=== PATIENT | female | born 1955 | race Hispanic/Latino ===

== ENCOUNTER 2018-04-13 17:00 | Emergency (ER) | payer OTHER ==
[~2018-04-13] VITALS: Ht 142.2 cm; Wt 66.7 kg
[2018-04-13] MEDS ORDERED: TRAMADOL HCL 50 MG TAB PO ONE (17:45)
[2018-04-13] MEDS ORDERED: KETOROLAC TROMETHAMINE 10 MG TAB PO ONE (17:45)
--- NOTE | 2018-04-13 18:42 | Diagnostic Imaging Report ---
PROCEDURE:X-RAY LEFT FOREARM, TWO VIEWS COMPARISON:None. INDICATIONS:FELL TODAY ON LEFT SIDE PAIN LEFT ARM AND PELVIS FINDINGS: Generalized osteopenia, which limits evaluation of bony structures. Linear lucency traversing the distal radial metaphysis, with questionable cortical step-off in the lateral aspect. Cortical step-off at the distal tip of the ulnar styloid process. Rest of the bony structures is intact. Joint spaces are relatively well-preserved. No posterior fat pad elevation. Soft tissues are grossly unremarkable. CONCLUSION: Generalized osteopenia which limits evaluation of the bony structures. Findings highly suspicious for nondisplaced distal radial fracture and ulnar styloid fracture. Tavares Zaidi M.D. Dictated by: Tavares Zaidi M.D. on 04/13/2018 at 18:48 Electronically approved by: Tavares Zaidi M.D. on 04/13/2018 at 18:48
--- NOTE | 2018-04-13 18:44 | Diagnostic Imaging Report ---
PROCEDURE:X-RAY LEFT WRIST, LIMITED COMPARISON:None. INDICATIONS:FALL TODAY ON LEFT SIDE PAIN IN LEFT ARM/WRIST AND PELVIS FINDINGS: Generalized osteopenia, which limits evaluation of the bony structures. Questionable linear lucency traversing the distal metaphysis of the radius. Cortical step-off in the distal tip of the ulnar styloid process. Joint spaces are relatively preserved. Mild soft tissue swelling. CONCLUSION: 1. Generalized osteopenia limits evaluation of the bony structures. Findings suspicious for distal radial and ulnar styloid nondisplaced fractures, better visualized on forearm views. Tavares Zaidi M.D. Dictated by: Tavares Zaidi M.D. on 04/13/2018 at 18:49 Electronically approved by: Tavares Zaidi M.D. on 04/13/2018 at 18:49
--- NOTE | 2018-04-13 18:45 | Diagnostic Imaging Report ---
PROCEDURE:X-RAY PELVIS, AP VIEW COMPARISON:None. INDICATIONS:FELL TODAY ON LEFT SIDE LEFT ARM AND PELVIS PAIN FINDINGS: Generalized osteopenia. No acute, displaced fractures or dislocations, within the limitations of the study. No lytic or blastic lesions. Mild degenerative changes in bilateral hip joints. Soft tissues are grossly unremarkable. CONCLUSION: Generalized osteopenia, which limits evaluation of bony structures. No acute displaced fracture or dislocation within the limitations of the study. Tavares Zaidi M.D. Dictated by: Tavares Zaidi M.D. on 04/13/2018 at 18:51 Electronically approved by: Tavares Zaidi M.D. on 04/13/2018 at 18:51
== END 2018-04-13 19:35 | disposition home or self-care (01) ==
LOC: ER 17:00
DX: S52.592A Other fractures of lower end of left radius, initial encounter for closed fracture (principal); S52.615A Nondisplaced fracture of left ulna styloid process, initial encounter for closed fracture; W01.0XXA Fall on same level from slipping, tripping and stumbling without subsequent striking against object, initial encounter; Y93.01 Activity, walking, marching and hiking; Y92.008 Other place in unspecified non-institutional (private) residence as the place of occurrence of the external cause; I10 Essential (primary) hypertension
CPT/HCPCS: 72170; 99283

== ENCOUNTER 2020-06-09 12:18 | Emergency (ER) | payer MEDICARE, OTHER ==
[~2020-06-09] VITALS: Ht 142.2 cm; Wt 68.0 kg
[2020-06-09] MEDS ORDERED: SODIUM CHLORIDE 0.9% 1000ML 1,000 ML IV STA (12:33)
[2020-06-09] MEDS ORDERED: ONDANSETRON HCL INJ 2MG/ML 2ML 2 MG/ML VIAL IV ONE (12:45)
[2020-06-09] MEDS ORDERED: FAMOTIDINE 20 MG/2 ML VIAL IV ONE ×2 (12:45→12:53)
[2020-06-09] MEDS ORDERED: ONDANSETRON HCL INJ 2MG/ML 2ML 2 MG/ML VIAL ONE (12:52)
[2020-06-09] MEDS ORDERED: SODIUM CHLORIDE 0.9% 1000ML 1,000 ML ONE (12:53)
[2020-06-09] MEDS ORDERED: SODIUM CHLORIDE 0.9% 50ML 50 ML ONE (13:22)
[2020-06-09] MEDS ORDERED: IOPAMIDOL 370 MG/ML 200 ML INFUS..BTL INJ ONE (13:22)
[2020-06-09] MEDS ORDERED: HYDROCHLOROTHIA25 MG (13:58)
[2020-06-09] MEDS ORDERED: ALENDRONATE SOD70 MG (13:58)
[2020-06-09] MEDS ORDERED: LOSARTAN POTASS25 MG (13:58)
[2020-06-09 14:44] VITALS: BP 127/79
[2020-06-09] MEDS ORDERED: ACETAMINOPHEN500 MG PO (14:52)
[2020-06-09] MEDS ORDERED: CEFDINIR300 MG PO (14:52)
[2020-06-09] MEDS ORDERED: IBUPROFEN IB200 MG PO (14:52)
[2020-06-09] MEDS ORDERED: ZOFRAN4 MG SL (15:17)
[2020-06-09] MEDS ORDERED: ULTRAM 50MG50 MG PO (15:17)
[2020-06-09] MEDS ORDERED: CIPRO500 MG PO (15:17)
[2020-06-09] MEDS ORDERED: METRONIDAZOLE500 MG PO (15:17)
== END 2020-06-09 15:30 | disposition home or self-care (01) ==
LOC: FSED 12:30
DX: N39.0 Urinary tract infection, site not specified (principal); R10.2 Pelvic and perineal pain; K57.32 Diverticulitis of large intestine without perforation or abscess without bleeding; I10 Essential (primary) hypertension; E78.5 Hyperlipidemia, unspecified
CPT/HCPCS: 74177; 80053; 81003; 85025; 96374; 96375; 99284; J2405; J7030; Q9967